=== PATIENT | female | born 1965 | race American Indian/Alaskan Native ===

== ENCOUNTER 2021-08-14 08:55 | Day surgery (SDC) | payer BC, OTHER ==
[~2021-08-14 08:55] MED LIST: Lactated Ringers 1,000 ML IV SCH
[2021-08-14] MEDS ORDERED: propofoL 50 ML ONE (09:47)
[2021-08-14] MEDS ORDERED: fentaNYL 100 MCG/2 ML SDV ONE (09:49)
[2021-08-14] MEDS ORDERED: Lidocaine 2% 5 ML SDV ONE (09:49)
[2021-08-14] MEDS ORDERED: Lactated Ringers 1,000 ML IV SCH (11:00)
[2021-08-14 11:32] VITALS: BP 111/51; PULSE 63
== END 2021-08-14 11:47 | disposition home or self-care (01) ==
LOC: MW.SDS 08:55
PROVIDERS: ATTEND Surgery
DX: D12.3 Benign neoplasm of transverse colon (principal); K62.1 Rectal polyp; K57.30 Diverticulosis of large intestine without perforation or abscess without bleeding; K29.50 Unspecified chronic gastritis without bleeding; K31.89 Other diseases of stomach and duodenum; K21.9 Gastro-esophageal reflux disease without esophagitis; E78.00 Pure hypercholesterolemia, unspecified; I10 Essential (primary) hypertension; E11.9 Type 2 diabetes mellitus without complications; Z88.2 Allergy status to sulfonamides; Z88.1 Allergy status to other antibiotic agents; Z79.4 Long term (current) use of insulin; Z96.642 Presence of left artificial hip joint; Z79.899 Other long term (current) drug therapy; Z87.891 Personal history of nicotine dependence; Z98.890 Other specified postprocedural states
CPT/HCPCS: 43239; 45380; J2704; J3010; J7120; 00813